=== PATIENT | male | born 1990 | race African-American/Black ===

== ENCOUNTER 2019-12-15 15:11 | Emergency (ER) | payer OTHER, SELFPAY ==
[2019-12-15 16:25] VITALS: BP 134/76; PULSE 73; RESP 18; TEMP 36.7; O2SAT 99
--- NOTE | 2019-12-15 16:25 | ED_ITS ---
HPI - Wound/Laceration General Chief Complaint: Wound/Laceration <KERRIE Parra Last Filed: 12/15/19 16:34> Stated Complaint: SUTURE REMOVAL <KERRIE Parra Last Filed: 12/15/19 16:34> Time Seen by Provider: 12/15/19 16:22 <KERRIE Parra - Last Filed: 12/15/19 16:34> Source: patient <KERRIE Parra Last Filed: 12/15/19 16:34> Mode of arrival: ambulatory <KERRIE Parra - Last Filed: 12/15/19 16:34> Limitations: no limitations <KERRIE Parra Last Filed: 12/15/19 16:34> History of Present Illness HPI narrative: Patient here for suture removal reports he was seen here approximately 1 month ago and 8 stitches were placed although he only has 3 left. Denies any fevers, drainage, worsening pain, numbness, tingling, surrounding erythema or any other symptoms complaints or concerns at this <KERRIE Parra Last Filed: 12/15/19 16:34> Related Data Home Medications: Previous Rx's Medication Instructions Recorded cephalexin [Keflex] 500 mg PO Q6H 10 Days #40 cap 12/15/19 doxycycline hyclate 100 mg PO BID 10 Days #20 cap NS 12/15/19 <KERRIE Parra - Last Filed: 12/15/19 16:34> Allergies/Adverse Reactions: Allergies Allergy/AdvReac Type Severity Reaction Status Date / Time No Known Allergies Allergy Unverified 11/16/19 19:53 [No Known Allergies*] <KERRIE Parra - Last Filed: 12/15/19 16:34> Review of Systems Review of Systems: Yes all other systems are reviewed and are negative <KERRIE Parra Last Filed: 12/15/19 16:34> [facility] Past Medical History Attestation statement: The following information was validated with the patient. <KERRIE Prara Last Filed: 12/15/19 16:34> Social History Social History: Social History Alcohol intake: current Alcohol intake frequency: 0-2 drinks per day Alcohol type: beer and wine Smoking Status: Current every day smoker Smoked in Last 30 Days: Yes Use of substances other than those prescribed or required for medical reasons: No Advance Directives: No Advance Directives Information Provided: Yes <KERRIE Parra - Last Filed: 12/15/19 16:34> Physical Exam Vital Signs: Vital Signs: Body Mass Index 27.3 <KERRIE Parra - Last Filed: 12/15/19 16:34> Vital Signs: Body Mass Index 27.3 <Kristofer Lama MD - Last Filed: 12/19/19 15:12> Const: General: cooperative, healthy appearing, comfortable, no acute distress, well developed, alert, awake and Physically active <KERRIE Parra - Last Filed: 12/15/19 16:34> Nutritional Appearance: average body habitus and well nourished <KERRIE Parra - Last Filed: 12/15/19 16:34> Orientation/consciousness: patient oriented x3 <KERRIE Parra - Last Filed: 12/15/19 16:34> Limitations: no limitations <KERRIE Parra - Last Filed: 12/15/19 16:34> HENMT: Head: Yes normal to inspection, Yes No palpable skull fracture present, Yes normocephalic and Yes atraumatic <KERRIE Parra - Last Filed: 12/15/19 16:34> Ears: hearing grossly normal bilaterally <KERRIE Parra - Last Filed: 12/15/19 16:34> General nose exam: Normal external nose present <KERRIE Parra - Last Filed: 12/15/19 16:34> Face and sinus: Yes normal facial exam <KERRIE Parra Last Filed: 12/15/19 16:34> Mouth: moist mucous membranes <KERRIE Parra - Last Filed: 12/15/19 16:34> Eyes: General: appearance normal, both eyes and all related structures <KERRIE Parra - Last Filed: 12/15/19 16:34> Visual [place]: normal visual reno by confrontation <KERRIE Parra Last Filed: 12/15/19 16:34> Alignment and Position: alignment normal <KERRIE Parra Last Filed: 12/15/19 16:34> Periorbital: periorbital findings normal <Vanessa Crow [facility] Last Filed: 12/15/19 16:34> Eyelids: Yes eyelids normal <Vanessa Crow [facility] Last Filed: 12/15/19 16:34> Conjunctivae: conjunctivae normal <Vanessa Crow [facility] Last Filed: 12/15/19 16:34> Sclerae: sclerae normal <Vanessa Crow [place] - Last Filed: 12/15/19 16:34> Pupils: Equal, round and reactive pupils present <Vanessa Crow [facility] Last Filed: 12/15/19 16:34> EOM: EOMs intact bilaterally <Vanessa Crow [facility] Last Filed: 12/15/19 16:34> Neck: Neck: Yes normal visual inspection, Yes full ROM, Yes no lymphadenopathy, Yes no meningeal signs, Yes trachea midline and Yes supple <Vanessa Crow [place] Last Filed: 12/15/19 16:34> Chest: Chest palpation & inspection: normal inspection of the chest <Vanessa Crow [facility] Last Filed: 12/15/19 16:34> Resp: Effort & Inspection: normal respiratory effort and able to speak in complete sentences <Vanessa Crow [facility] Last Filed: 12/15/19 16:34> Auscultation: clear to auscultation bilaterally, no crackles, no rales, no rhonchi and no wheezes <Vanessa Crow [facility] Last Filed: 12/15/19 16:34> Cardio: Rate: regular rate <Vanessa Crow [facility] Last Filed: 12/15/19 16:34> Rhythm: regular rhythm <Vanessa Crow [facility] Last Filed: 12/15/19 16:34> Heart sounds: S1 normal heart sound present and S2 normal heart sound present <Vanessa Crow [facility] Last Filed: 12/15/19 16:34> Peripheral pulses: Peripheral pulses 2+ throughout <Vanessa Crow [facility] Last Filed: 12/15/19 16:34> GI: Inspection: Yes normal to inspection <Vanessa Crow [facility] Last Filed: 12/15/19 16:34> Palpation (GI): Soft to palpation, nontender and No hepatosplenomegaly present <Vanessa Crow [place] - Last Filed: 12/15/19 16:34> Percussion: Yes normal to percussion <Vanessa Crow [place] - Last Filed: 12/15/19 16:34> Auscultation: normal bowel sounds <Vanessa Crow [place] - Last Filed: 12/15/19 16:34> : General: Yes no CVA tenderness <Vanessa Crow [place] - Last Filed: 12/15/19 16:34> Back/Spine/Pelvis: Back: no CVA tenderness <Vanessa Crow [place] - Last Filed: 12/15/19 16:34> Cervical Spine: normal cervical lordosis and cervical ROM normal <Vanessa Crow [place] - Last Filed: 12/15/19 16:34> Thoracic/Lumbar Spine: thoracic and lumbar spine normal to inspection and thoraco-lumbar ROM normal <Vanessa Crow [place] - Last Filed: 12/15/19 16:34> Skin: General skin exam: no rashes or lesions noted, elasticity normal and turgor normal <Vanessa Crow [place] - Last Filed: 12/15/19 16:34> Trauma: no lacerations or abrasions <Vanessa Crow [place] - Last Filed: 12/15/19 16:34> Wounds: no wounds <Vanessa Crow [facility] Last Filed: 12/15/19 16:34> Hair: normal <Vanessa Crow [facility] Last Filed: 12/15/19 16:34> Nails: normal <Vanessa Crow [place] - Last Filed: 12/15/19 16:34> Neuro: General: patient oriented x3 and no meningeal signs <Vanessa Crow [place] - Last Filed: 12/15/19 16:34> Cranial nerves: Yes CN's II-XII intact bilaterally and Yes Equal, round and reactive pupils present <aVnessa Crow [place] - Last Filed: 12/15/19 16:34> Cognition (Neuro): normal cognition <Vanessa Crow [place] - Last Filed: 12/15/19 16:34> Gait exam (Neuro): Normal gait present <KERRIE Parra Last Filed: 12/15/19 16:34> Motor exam (neuro): 5/5 motor strength present throughout <Vanessa Crow [facility] Last Filed: 12/15/19 16:34> Extrem: General: Yes normal to inspection, Yes full ROM, Yes capillary refill normal, Yes no clubbing, cyanosis or edema, No no pedal edema, No no calf tenderness, Yes normal gait and No edema <Vanessa Crow [facility] Last Filed: 12/15/19 16:34> Right upper extremity: normal to inspection, full ROM and normal capillary refill; no edema <Vanessa Crow [facility] Last Filed: 12/15/19 16:34> Left upper extremity: normal to inspection, full ROM, normal capillary refill and hand (3 suture to left middle finger mild surrounding erythema no fluctuance); no edema <Vanessa Crow [facility] Last Filed: 12/15/19 16:34> Right lower extremity: normal to inspection, full ROM and normal capillary refill; no edema <Vanessa Crow [facility] Last Filed: 12/15/19 16:34> Left lower extremity: normal to inspection, full ROM and normal capillary refill; no edema <Vanessa Crow [facility] Last Filed: 12/15/19 16:34> Psych: Appearance: grossly normal and well kempt <Vanessa Crow [facility] Last Filed: 12/15/19 16:34> Mental Status: mental status grossly normal <KERRIE Parra Last Filed: 12/15/19 16:34> Speech and movement: Normal speech and movement present and Clear speech present <Vanessa Crow [facility] Last Filed: 12/15/19 16:34> Affect: normal affect <Vanessa Crow [facility] Last Filed: 12/15/19 16:34> Attitude: cooperative <KERRIE Parra Last Filed: 12/15/19 16:34> Thought process: Normal thought process present <KERRIE Parra Last Filed: 12/15/19 16:34> Thought content: Normal thought content present <KERRIE Parra Last Filed: 12/15/19 16:34> Insight: Good insight present (Psych) <KERRIE Parra - Last Filed: 12/15/19 16:34> Judgement: Good judgement present (Psych) <KERRIE Parra - Last Filed: 12/15/19 16:34> Course Course Course Narrative: patient is now status post suture removal suture were removed with no complications. Patient has mild erythema and tenderness to palpation although no fluctuance consistent with abscess therefore no I and D indicated at this time although we will place on antibiotics instructions return if any new or worsening symptoms. No drainage /streaking /induration noted. Patient understands agrees with this plan. <KERRIE Parra - Last Filed: 12/15/19 16:34> I have reviewed the chart <Kristofer Lama MD - Last Filed: 12/19/19 15:12> Discharge Plan Discharge Clinical Impression: Visit for suture removal, Cellulitis <KERRIE Parra - Last Filed: 12/15/19 16:34> Patient Disposition: Home, Self-Care <KERRIE Parra - Last Filed: 12/15/19 16:34> Instructions: Stitches Removal (ED) <KERRIE Parra Last Filed: 12/15/19 16:34> Prescriptions: New doxycycline hyclate 100 mg capsule 100 mg PO BID 10 Days Qty: 20 RF: 0 cephalexin [Keflex] 500 mg capsule 500 mg PO Q6H 10 Days Qty: 40 RF: 0 <KERRIE Parra - Last Filed: 12/15/19 16:34> Stand Alone Forms: Work/School Release <KERRIE Parra Last Filed: 12/15/19 16:34> Interventions: ED Discharge Assessment Last Done: 12/15/19 18:44 <KERRIE Parra Last Filed: 12/15/19 16:34> Discharge Date/Time: 12/15/19 17:30 <KERRIE Parra Last Filed: 12/15/19 16:34> Print Language: Dutch <KERRIE Parra Last Filed: 12/15/19 16:34>
[2019-12-15 16:26] VITALS: BP 136/77; PULSE 64; RESP 16; TEMP 37.2; O2SAT 98; BMI 27.3
== END 2019-12-15 17:30 | disposition home or self-care (01) ==
PROVIDERS: Emergency Provider Emergency Medicine
DX: Z48.02 Encounter for removal of sutures (principal)
CPT/HCPCS: 99283; 99284